=== PATIENT | female | born 1965 | race American Indian/Alaskan Native ===

== ENCOUNTER 2021-09-03 15:17 | Emergency (ER) | payer SELFPAY ==
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
[2021-09-03] MEDS ORDERED: EPINEPHrine 1 MG/10 ML SYRINGE ONE (16:00)
== END 2021-09-03 18:05 ==
LOC: ED 15:17
DX: I46.9 Cardiac arrest, cause unspecified (principal)
CPT/HCPCS: 92950; 99285; J0171